=== PATIENT | female | born 1955 | race Caucasian/White ===

== ENCOUNTER → 2016-03-30 | Outpatient (CLI) | payer BC | END | disposition home or self-care (01) | LOC: LABWHC1 08:29 | PROVIDERS: ATTEND Anesthesiology | DX: Z01.818 Encounter for other preprocedural examination (principal) | CPT/HCPCS: 86850; 86900; 86901 ==

== ENCOUNTER 2016-04-05 05:54 | Day surgery (SDC) | payer BC ==
[2016-03-27 12:25] VITALS: BMI 35.2
[~2016-04-05 05:54] MED LIST: GENTAMICIN 120 MG in SODIUM CHLORIDE 0.9% 100 ML IVPB ONE; ceFAZolin 2 GM in SODIUM CHLORIDE 0.9% 100 ML IVPB ONE
[2016-04-05] MEDS ORDERED: ONDANSETRON 4 MG/2 ML VIAL IVP ONE (06:05)
[2016-04-05] MEDS ORDERED: DEXAMETHASONE SOD PHOSPHATE 10 MG/ML 1 ML VIAL IV ONE (06:05)
[2016-04-05] MEDS ORDERED: SCOPOLAMINE 1.5MG/72HR PATCH TRANSDERM ONE (06:05)
[2016-04-05] MEDS ORDERED: HYDROmorphone 1 MG/ML 1 ML SYRINGE IVP PRN (06:05)
[2016-04-05] MEDS ORDERED: MIDAZOLAM 2 MG/2 ML VIAL IV PRN (06:05)
[2016-04-05] MEDS ORDERED: LIDOCAINE 1% 20 ML VIAL (10MG/ML) FOR IV START INTRADERMA ONE (06:15)
[2016-04-05] MEDS: LACTATED RINGERS 1,000 ML IV SCH ×4 (06:15→20:40)
--- NOTE | 2016-04-05 07:05 | P.HPOB ---
History of Present Illness H&P Date: 04/05/16 Chief Complaint: prolapse and incontinence 60 year old presents for total laparoscopic hysterectomy bilateral salpingoopherectomy with anterior repair and sling by Dr Beck. Review of Systems All systems: negative Constitutional: Denies chills, Denies fever Eyes: denies blurred vision, denies pain Ears, nose, mouth and throat: Denies headache, Denies sore throat Cardiovascular: Denies chest pain, Denies shortness of breath Respiratory: Denies cough Gastrointestinal: Denies abdominal pain, Denies diarrhea, Denies nausea, Denies vomiting Genitourinary: Denies dysuria, Denies hematuria Musculoskeletal: Denies myalgias Integumentary: Denies pruritus, Denies rash Neurological: Denies numbness, Denies weakness Psychiatric: Denies anxiety, Denies depression Endocrine: Denies fatigue, Denies weight change Past Medical History Past Medical History: No Reported History History of Any Multi-Drug Resistant Organisms: None Reported Past Surgical History: Appendectomy, Bariatric Surgery, Cholecystectomy, Orthopedic Surgery Additional Past Surgical History / Comment(s): bilateral carpal tunnel, gastric bypass Past Anesthesia/Blood Transfusion Reactions: Family History of Problems w/ Anesthesia Additional Past Anesthesia/Blood Transfusion Reaction / Comment(s): mom-hives w/ anesthesia? Past Psychological History: No Psychological Hx Reported Smoking Status: Former smoker Past Alcohol Use History: Occasional Additional Past Alcohol Use History / Comment(s): quit smoking 15 yrs. ago, smoked on & off 10 yrs. Past Drug Use History: None Reported - Past Family History Mother Family Medical History: Cancer Medications and Allergies Home Medications Medication Instructions Recorded Confirmed Type Calcium Carbonate [Calcium] 600 mg PO DAILY 03/27/16 03/27/16 History Cyanocobalamin [Vitamin B-12] 500 mcg PO DAILY 03/27/16 03/27/16 History Multivit with Calcium,Iron,Min 1 each PO DAILY 03/27/16 03/27/16 History [Women's Multivitamin] Cephalexin [Keflex] 250 mg PO Q8HR 04/05/16 04/05/16 History Allergies Allergy/AdvReac Type Severity Reaction Status Date / Time Sulfa (Sulfonamide Allergy Rash/Hives Verified 04/05/16 06:08 Antibiotics) adhesive AdvReac Itching Verified 04/05/16 06:08 Exam Osteopathic Statement: *. No significant issues noted on an osteopathic structural exam other than those noted in the History and Physical/Consult. - Vital Signs Vital signs: Vital Signs Temp Pulse Resp BP Pulse Ox 04/05/16 06:13 98.3 F 77 16 140/90 96 Heart: RRR Lungs: CTAB Abdomen: soft, nontender Extremeties: neg tyrell's Assessment and Plan (1) Cystocele with uterine prolapse Status: Acute (2) Urinary incontinence Status: Acute Plan: 1. total laparoscopic hysterectomy with bilateral salpingoopherectomy with anterior repair and midurethral sling
[2016-04-05] MEDS ORDERED: MIDAZOLAM 2 MG/2 ML VIAL ONE (07:23)
[2016-04-05] MEDS ORDERED: fentaNYL (PF) 50 MCG/ML 2 ML AMP ONE (07:23)
[2016-04-05] MEDS ORDERED: NEOSTIGMINE 1 MG/ML 10 ML VIAL ONE (07:23)
[2016-04-05] MEDS ORDERED: PHENYLEPHRINE-0.9% NACL SYG 1 MG/10 ML SYRINGE ONE (07:23)
[2016-04-05] MEDS ORDERED: ePHEDrine 50 MG/ML 1 ML AMP ONE (07:23)
[2016-04-05] MEDS ORDERED: GLYCOPYRROLATE 0.2 MG/ML 2 ML VIAL ONE (07:23)
[2016-04-05] MEDS ORDERED: ROCURONIUM BROMIDE 10 MG/ML 10 ML VIAL IV ONE (07:23)
[2016-04-05] MEDS ORDERED: SUCCINYLCHOLINE CHLORIDE VIAL 200 MG/10 ML VIAL IV ONE (07:23)
[2016-04-05] MEDS ORDERED: PROPOFOL 10 MG/ML 20 ML VIAL IV ONE (07:23)
[2016-04-05] MEDS ORDERED: ONDANSETRON 4 MG/2 ML VIAL ONE (07:23)
[2016-04-05] MEDS ORDERED: LIDOCAINE 1% INJ 10MG/ML (20 ML MDV) ONE (07:23)
[2016-04-05] MEDS ORDERED: BUPIVACAINE (PF) 0.25% 30 ML VIAL SQ ONE ×2 (08:34→09:03)
[2016-04-05] MEDS ORDERED: VASOPRESSIN 20 UNIT/ML 1 ML VIAL SQ ONE (08:50)
[2016-04-05] MEDS ORDERED: GENTAMICIN 80 MG in SODIUM CHLORIDE 0.9% 500 ML IRRIGATION ONE (08:52)
[2016-04-05] MEDS ORDERED: BACITRACIN 500 UNIT/GM OINT 28.4 GM TUBE TOPICAL ONE (09:31)
--- NOTE | 2016-04-05 09:38 | P.OP ---
Date of Procedure: 04/05/16 Preoperative Diagnosis: 1. Cystocele 2. Stress urinary incontinence Postoperative Diagnosis: 1. Cystocele 2. Stress urinary incontinence Implants: Total laparoscopic hysterectomy with bilateral salpingo-oophorectomy using da Mallika as well as an anterior repair and mid urethral sling placed by Dr. Beck Anesthesia: CHANDA Surgeon: Brooke Hernandez Procurement Technician #1: Andrez Machado Estimated Blood Loss (ml): 400 IV fluids (ml): 900 Urine output (ml): 300 Pathology: other (Uterus cervix bilateral tubes and ovaries) Condition: stable Disposition: PACU Description of Procedure: Patient taken the operating room where general anesthesia was obtained without difficulty. She is prepped and draped in normal sterile fashion dorsal lithotomy position, legs placed in the Mark stirrups. Weighted speculum placed in the vagina and the anterior lip the cervix was grasped with single- tooth tenaculum. The uterus sounded to 8 cm and the cervix diameter was 3.5 cm. The appropriate manipulator tip and ring were placed on the Kala manipulator. The Kala manipulator was then placed in the uterus. Craig catheter was also placed. Attention was then turned to the abdomen and gloves were changed. A 5 mm supraumbilical incision was made the scalpel and a 5 mm optical trocar was placed under direct visualization. 10 cm to the right of this and 2 cm down a 5 mm incision was made and 8 mm da Mallika port was placed under direct visualization. Same measurements on the opposite side of the patient's abdomen, the 5 mm incision was made and 8 mm da Mallika port was placed under direct visualization. In the left upper quadrant a 10 mm incision was made and a 10 mm optical trocar was placed under direct visualization. The 5 mm optical trocar was then replaced with the 8 mm da Mallika camera port. The robot was docked on patient's right side. The camera was introduced and then the monopolar curved scissor and [place] bipolar placed under direct visualization. I broke scrub and went to the physician console. The left infundibulopelvic ligament was cauterized with the Maryland bipolar and cut with monopolar curved scissors. The left round ligament was cauterized with the [place] bipolar and cut with monopolar curved scissors. The posterior leaf of the broad ligament was taken down using the monopolar curved scissors. Anterior leaf of the broad ligament was then taken down using the monopolar curved scissors. The uterine artery was cauterized with the Maryland bipolar and cut with monopolar curved scissors. The bladder flap was then started using the monopolar curved scissors. Attention was then turned to the right side of the patient's anatomy and the right infundibular pelvic ligament was cauterized with the Maryland bipolar and cut with monopolar curved scissors. The right round ligament was cauterized with the Maryland bipolar and cut with monopolar curved scissors. Posterior leaf of the broad ligament was taken down using the monopolar curved scissors and the anterior leaf was taken down using the monopolar curved scissors. The uterine artery was cauterized the Maryland bipolar cut with monopolar curved scissors. The bladder flap was then finished on this side. Anterior colpotomy was made using the monopolar curved scissors. The rest of the uterus was from the vaginal cuff by following the ring around with the monopolar curved scissors through the uterosacral ligaments back to the anterior portion. Once the uterus and cervix were amputated they were pulled through the vaginal cuff. Hemostasis was assured. The instruments were changed for the Cardier forcep and the zana suture cut. The vaginal cuff was then closed using O stratafix barbed suture in a running fashion. Hemostasis was again assured and the pelvis was irrigated. All instruments were removed from the abdomen and the robot was undocked. I scrubbed back in to perform the anterior repair. The anterior vaginal mucosa was grasped with Allis clamps and then the mucosa was infiltrated with diluted vasopressin. A linear cut was made with a scalpel and then the vaginal mucosa was undermined with the Metzenbaums. The vaginal mucosa was peeled off the underlying fascia. One Chandrika plication stitch was placed. Dr. Baca then took over the procedure and placed a sling and performed a cystoscopy where we did see both ureteral jets. Please see his dictation for full details on this. The abdominal incisions were closed with 4-0 Vicryl in a subcuticular fashion. Patient tolerated the procedure well, sponge and instrument counts correct 2 and she was taken to recovery room in stable condition condition
--- NOTE | 2016-04-05 10:08 | P.OP ---
Date of Procedure: 04/05/16 Preoperative Diagnosis: Mixed Urinary Incontinence Postoperative Diagnosis: Same Procedure(s) Performed: Obtryx Subfascial Sling Anesthesia: CHANDA Surgeon: Sawyer Beck Estimated Blood Loss (ml): 100 Pathology: none sent Condition: stable Disposition: PACU Indications for Procedure: She is a 60-year-old woman with a long history of mixed urinary incontinence, which now requires the use of 1-2 pads daily. She failed biofeedback approximately 10 years ago. On examination, there is evidence of urethral hypermobility, as well as a cystocele. Bladder emptying is complete. She was given samples of Myrbetriq, which failed to help. Urodynamic testing is consistent with type II stress incontinence, and she will undergo a trans- obturator sling at the time of her robotic-assisted laparoscopic hysterectomy with BSO and cysotocele repair Operative Findings: Normal bladder. Description of Procedure: I entered the operating room after Dr. Hernandez completed the robotic-assisted laparoscopic hysterectomy and bilateral salpingo-oophorectomy. She had completed the cystocele repair. The patient was positioned in the dorsal lithotomy position, with her legs supported in Mark stirrups. A 16-Andorran Craig catheter was placed. Metzenbaum scissors were used to dissect laterally within the submucosal plane, to the inferior pubic ramus. The scalpel was used to make bilateral groin incisions at the level of the clitoris. Subcutaneous tissues were spread with a hemostat. Each of the helical needles were passed through the respective groin incision, and turned such that the needle tip wrapped around the pubis. The needle tips were guided digitally into the vaginal incision. The Obtryx graft, which had been previously soaked in antibiotic solution, was secured to the needle tips using the snap connectors. The needles were then withdrawn, and the position of the graft was adjusted such that it overlie the mid urethra, as desired. The ends of the graft were cut away. With a hemostat placed between the graft and the urethra to prevent tension of the graft over the urethra, the plastic sheath was removed from the ends of the graft. The ends of the graft were cut beneath the skin incisions, and these incisions were closed using 4-0 Vicryl suture in a subcuticular fashion. Hemostasis within the vaginal incision was adequate, and the vaginal incision was closed using 2-0 Vicryl suture in a running fashion. Cystoscopy was performed. The 30 lens was used to introduce the 19-Andorran Storz cystoscopic sheath through the urethra and into the bladder under direct vision. The urethra and bladder were unremarkable. There was no evidence of perforation. Both ureteral orifices were of normal anatomic location and configuration, and clear urine effluxed from both. No tumors or foreign bodies were seen. The cystoscope was removed, and the Craig catheter was replaced into the bladder. The return was clear. Vaginal packing was placed, as some oozing was present from the right side of the dissection. All sponge and needle counts were correct. Blood loss for the total procedure was 400 mL. The patient tolerated the procedure well was taken to the recovery room in stable condition.
[2016-04-05] MEDS ORDERED: SIMETHICONE 80 MG CHEWABLE PO PRN (11:10)
[2016-04-05] MEDS ORDERED: ONDANSETRON 4 MG/2 ML VIAL IVP PRN (11:10)
[2016-04-05] MEDS ORDERED: KETOROLAC 30 MG/ML 1 ML VIAL IVP PRN (11:10)
[2016-04-05] MEDS ORDERED: IBUPROFEN 600 MG TAB PO PRN (11:10)
[2016-04-05] MEDS ORDERED: diphenhydrAMINE 50 MG/ML 1 ML VIAL IVP PRN (11:10)
[2016-04-05] MEDS ORDERED: Acetaminophen-Codeine 300-30mg TAB PO PRN ×2 (11:10)
[2016-04-05] MEDS: ceFAZolin 2 GM in SODIUM CHLORIDE 0.9% 100 ML IVPB SCH (16:52)
[2016-04-05] MEDS ORDERED: GENTAMICIN 120 MG in SODIUM CHLORIDE 0.9% 100 ML IVPB ONE (20:00)
[2016-04-05] MEDS: SENNOSIDES-DOCUSATE SODIUM 1 EACH TAB PO SCH (20:39)
[2016-04-06] MEDS: ceFAZolin 2 GM in SODIUM CHLORIDE 0.9% 100 ML IVPB SCH ×2 (00:17→08:18)
[2016-04-06 08:31] LABS: Basophils % (A) 0 %; CH 26.7; CHCM 31.7; Eosinophils # (A) 0.1 k/uL (0-0.7); Eosinophils % (A) 1 %; HCT 31.9 % (34.0-46.0); HDW 2.75; HGB 9.8 gm/dL (11.4-16.0); Hypochromasia Slight; Luc # (Auto) 0.09; Luc % (Auto) 1; Lymphocytes # (A) 1.7 k/uL (1.0-4.8); Lymphocytes % (A) 25 %; MCH 25.9 pg (25.0-35.0); MCHC 30.5 g/dL (31.0-37.0); MCV 84.9 fL (80.0-100.0); Mean Platelet Volume 9.1; Monocytes # (A) 0.5 k/uL (0-1.0); Monocytes % (A) 8 %; Neutrophils # (A) 4.3 k/uL (1.3-7.7); Neutrophils % (A) 65 %; RBC 3.76 m/uL (3.80-5.40); RDW 15.3 % (11.5-15.5); WBC 6.7 k/uL (3.8-10.6); WBC (Perox) 6.65
--- NOTE | 2016-04-06 09:30 | P.PN ---
Subjective The patient is in her first postoperative day from placement of a trans- obturator tape by , and a robotic-assisted abdominal hysterectomy with anterior repair by Dr. Hernandez. She is doing well. The catheter has been removed. We will see how she voids. From urologic standpoint when she is emptying adequately she can be discharged home. I will allow Dr. Hernandez to make that final decision provided she urinates without difficulty. She would need to be seen in our office in one week for follow-up. Objective - Vital Signs Vital signs: Vital Signs Temp 98.3 F 04/06/16 00:15 Pulse 80 04/06/16 00:15 Resp 20 04/06/16 00:15 BP 113/64 04/06/16 00:15 Pulse Ox 94 L 04/06/16 00:15 Intake & Output 04/05/16 04/06/16 04/06/16 18:59 06:59 18:59 Intake Total 1702 1200 Output Total 1100 3200 Balance 602 -2000 Intake: IV 1502 Oral 200 1200 Output: Urine 700 3200 Estimated Blood Loss 400 - Labs CBC & Chem 7: 04/06/16 07:03 Labs: Abnormal Lab Results - Last 24 Hours (Table) 04/06/16 Range/Units 07:03 RBC 3.76 L (3.80-5.40) m/uL Hgb 9.8 L (11.4-16.0) gm/dL Hct 31.9 L (34.0-46.0) % MCHC 30.5 L (31.0-37.0) g/dL
[2016-04-06 09:41] VITALS: BP 108/57; PULSE 85; RESP 18; TEMP 99.7
[2016-04-06] MEDS: SENNOSIDES-DOCUSATE SODIUM 1 EACH TAB PO SCH (10:04)
--- NOTE | 2016-04-06 10:06 | P.DS ---
Providers Date of admission: 04/05/16 Expected date of discharge: 04/06/16 Attending physician: Brooke Hernandez Primary care physician: Stated None - Discharge Diagnosis(es) (1) Cystocele with uterine prolapse Current Visit: Yes Status: Resolved (2) Urinary incontinence Current Visit: Yes Status: Resolved Hospital Course: PAtient presented for [facility] BSO with anterior repair and sling. She underwent this procedure without complication. HEr pain is well controlled. Tolerating reg diet ambulating without difficulty. She will be discharged home POD #1 in stable condition to follow up with me in 3 weeks. Plan - Discharge Summary New Discharge Prescriptions: Acetaminophen-Codeine 300-30mg [Tylenol w/codeine #3] 2 each PO Q6HR PRN #30 tab PRN Reason: Severe Pain Ibuprofen [Motrin] 600 mg PO Q6HR PRN #30 tab PRN Reason: Mild Discomfort Discharge Medication List Calcium Carbonate [Calcium] 600 mg PO DAILY 03/27/16 [History] Cyanocobalamin [Vitamin B-12] 500 mcg PO DAILY 03/27/16 [History] Multivit with Calcium,Iron,Min [Women's Multivitamin] 1 each PO DAILY 03/27/16 [ History] Cephalexin [Keflex] 250 mg PO Q8HR 04/05/16 [History] Acetaminophen-Codeine 300-30mg [Tylenol w/codeine #3] 2 each PO Q6HR PRN #30 tab 04/06/16 [Rx] Ibuprofen [Motrin] 600 mg PO Q6HR PRN #30 tab 04/06/16 [Rx] Follow up Appointment(s)/Referral(s): Brooke Hernandez DO [Doctor of Osteopathic Medicine] - 3 Weeks
== END 2016-04-06 13:00 | disposition home or self-care (01) ==
LOC: OR 05:54 → 6PED 09:32 → OR 04-06 13:00
PROVIDERS: ATTEND Obstetrics & Gynecology
DX: N81.2 Incomplete uterovaginal prolapse (principal); N39.46 Mixed incontinence; Z79.899 Other long term (current) drug therapy; Z88.2 Allergy status to sulfonamides; Z88.8 Allergy status to other drugs, medicaments and biological substances; Z87.891 Personal history of nicotine dependence; Z79.2 Long term (current) use of antibiotics
CPT/HCPCS: 57288; 58571; S2900; 85025; 86850; 86900; 86901; 88305; 94760

== ENCOUNTER 2018-03-18 10:44 | Day surgery (SDC) | payer BC ==
[2018-03-12 09:37] VITALS: BMI 32.3
[~2018-03-18 10:44] MED LIST changes: +DEXAMETHASONE SOD PHOSPHATE 10 MG/ML 1 ML VIAL IV ONE; -GENTAMICIN 120 MG in SODIUM CHLORIDE 0.9% 100 ML IVPB ONE; +HYDROmorphone 0.5 MG/0.5 ML SYRINGE IVP PRN; +LACTATED RINGERS 1,000 ML IV SCH; +LIDOCAINE 1% 20 ML VIAL (10MG/ML) FOR IV START INTRADERMA PRN; +ONDANSETRON 4 MG/2 ML VIAL IVP ONE; +SCOPOLAMINE 1.5MG/72HR PATCH TRANSDERM ONE; -ceFAZolin 2 GM in SODIUM CHLORIDE 0.9% 100 ML IVPB ONE; +ceFAZolin IN SWFI 2 GM/20 ML SYRINGE IVP ONE
[2018-03-18] MEDS ORDERED: MIDAZOLAM 2 MG/2 ML VIAL IVP ONE (11:53)
[2018-03-18] MEDS ORDERED: NEOSTIGMINE 1 MG/ML 10 ML VIAL ONE (12:29)
[2018-03-18] MEDS ORDERED: LIDOCAINE 1% INJ 10MG/ML (20 ML MDV) ONE (12:29)
[2018-03-18] MEDS ORDERED: ePHEDrine SULFATE/0.9% NACL/PF 50 MG/5 ML SYRINGE IV ONE (12:29)
[2018-03-18] MEDS ORDERED: MIDAZOLAM 2 MG/2 ML VIAL ONE (12:29)
[2018-03-18] MEDS ORDERED: GLYCOPYRROLATE 0.2 MG/ML 2 ML VIAL ONE (12:29)
[2018-03-18] MEDS ORDERED: SUCCINYLCHOLINE CHLORIDE 100 MG/5 ML SYR IV ONE (12:29)
[2018-03-18] MEDS ORDERED: PROPOFOL 10 MG/ML 20 ML VIAL IV ONE (12:29)
[2018-03-18] MEDS ORDERED: ROCURONIUM BROMIDE 10 MG/ML 10 ML VIAL IV ONE (12:29)
[2018-03-18] MEDS ORDERED: PHENYLEPHRINE-0.9% NACL SYG 1 MG/10 ML SYRINGE ONE (12:29)
[2018-03-18] MEDS ORDERED: BUPIVACAINE (PF) 0.25% 30 ML VIAL SQ ONE ×2 (13:03)
[2018-03-18] MEDS ORDERED: ceFAZolin 1,000 MG in SODIUM CHLORIDE 0.9% 1,000 ML IRRIGATION ONE (13:04)
[2018-03-18] MEDS ORDERED: LACTATED RINGERS 1,000 ML IV ONE (13:26)
[2018-03-18 14:27] VITALS: TEMP 97.8
[2018-03-18 14:50] VITALS: RESP 16
--- NOTE | 2018-03-18 15:09 | OP ---
OPERATIVE REPORT DATE OF PROCEDURE: 03/18/2018 PREOPERATIVE DIAGNOSIS: Right closed displaced midshaft clavicle fracture. POSTOPERATIVE DIAGNOSIS: Right closed displaced midshaft clavicle fracture. PROCEDURE PERFORMED: Open reduction, internal fixation, right clavicle fracture. SURGEON: Javier Mg MD. EXAMINER RATING CLERK: Ortiz LARIOS. ANESTHESIA: General endotracheal. ESTIMATED BLOOD LOSS: 50 mL. TOURNIQUET: None. DRAINS: None. COMPLICATIONS: None apparent. DISPOSITION: Postanesthesia Care Unit. INDICATIONS: Pam is a very pleasant 62-year-old female who slipped in her bathroom and fell onto her right shoulder a little bit less than a week ago. She initially presented to my office after being seen in the emergency department. She did have a 100% displaced and highly shortened midshaft clavicle fracture. Due to the significant displacement of the fracture, recommendation was made for open reduction, internal fixation of her clavicle fracture. She would like to proceed. The risks of procedure were discussed with her in detail. These risks include, but are not limited to risk of infection, nerve damage, bleeding, pain, and failure of the fracture to heal. There is also the possibility for deep infection and loosening of the screws and plate. A further risk is a very small risk of deep vein thrombosis which could lead to fatal pulmonary embolism. All of her questions with regards to the risks were answered to her satisfaction. An appropriate informed consent was obtained. DESCRIPTION OF THE PROCEDURE: Patient identified in the preoperative holding area. Surgical site was marked by both the patient and myself. She was given 2 g of Ancef IV for prophylactic purposes. She was then transported to the operative suite. She was placed supine on the operative table. General anesthetic was then administered and dosed per the Anesthesia Department without apparent complication. She was then placed into the beach chair position, well-padded in preparation for surgery. Great care was taken to ensure that here cervical spine was in neutral alignment and maintained that way throughout the operative case. Also, great care was taken to ensure that her legs were appropriately padded as well. Patient's right upper extremity is then prepped and draped in usual sterile fashion. A standard surgical pause was undertaken to ensure that we were operating on the correct site and that appropriate preoperative antibiotics were given. All staff in the room were in agreement, we proceeded. The outlines of the fracture were marked with surgical pen. The AC joint, acromion, and coracoid also marked with surgical pen. A planned 10-12 cm incision centered over the fracture was then made in the anterior aspect of the clavicle. Incision was then made with a 10 blade scalpel. Dissection carried down sharply to the clavicle itself. Great care was taken to make sure the maximized thickness of the flaps for closure at the end of the case. The fracture is alert was readily identifiable. I did mostly blunt dissection around the fracture site as to avoid any iatrogenic nerve or blood vessel injury. The fracture was comminuted. There was a fairly large comminuted fragment measured approximately 2 cm. However, is was very thin. I then utilized a lobster claw-type reduction clamps to reduce the fracture. As noted, there was quite a bit of comminution. I did freshen up the fracture and this provided for nice fit for reduction. I then proceeded with placement of a plate. A 6 hole [employer] pre contoured clavicle plate was chosen. This fit very nicely. I then placed the 3.5 mm bicortical nonlocking screw through the proximal oblong hole of the plate. The fracture was then held reduced with reduction clamps and the 3.5 mm bicortical nonlocking screw was placed through the oblong hole in the distal aspect of the fracture. This was placed in a compression type function as well as to compress the fracture. Both of the screws had excellent purchase in bone. I then proceeded with placement of two bicortical 3.5 mm locking screws in the proximal fragment and then two 3.5 mm bicortical locking screws in the distal fragment. All the screws were placed with protection on the undersurface of the clavicle as to avoid any iatrogenic injury to the nerve or blood vessels. Fracture admitted to reduced very nicely at this point. It was compressed as much as possible. All the screws had good purchase. I proceeded with closure. The comminuted fragment did have some anterior soft tissue still attached to it. I then utilized a K-wire to make a small hole through the comminuted piece and then I was able to run a #1 Vicryl suture through comminuted piece around the plate to provide provisional fixation for the comminuted anterior piece of bone. I did not feel that the piece of bone was of sufficient thickness that it would allow for screw fixation. This provided good provisional fixation of the anterior comminuted fragment. I then proceeded with closure. The wound was thoroughly irrigated with sterile saline solution with antibiotic added. The deep deltotrapezial fascia was closed with interrupted #1 Vicryl sutures. This provided excellent robust provisional layered closure over the plate. Again the wound was thoroughly irrigated with sterile saline solution with antibiotic added. The subcutaneous tissue was then closed with 2-0 Vicryl suture. The skin was closed with a running 3-0 Quill suture. Dermabond was then applied to the incision. Sterile compressive dressing was then applied. All sponge and needle counts were deemed correct prior to closure. The patient tolerated the procedure without apparent complication. Her right upper extremity was placed in a standard sling. She was transferred to the recovery room in stable condition. MMODL / IJN: [id number] /
[2018-03-18 15:47] VITALS: BP 119/82; PULSE 86
--- NOTE | 2018-03-18 22:02 | P.ONQ ---
Anesthesiology Proc Note - PNB - Peripheral Nerve Block Performed Right Interscalene Single Time Out Performed: Yes (1200) Procedure Start Time: 12:00 Procedure Stop Time: 12:10 Indication: Acute Post-Operative Pain, Dx/Pain Location (Right Shoulder Pain), Requested by physician Sedation Type: Sedate with meaningful contact maintained Preparation: Sterile Prep Position: Supine Catheter: None Needle Types: On-Q Needle Size: 50mm (2") Needle Gauge: 21 Technique: Ultrasound Injectate: 0.5% Ropivacaine (see comment for volume) (20ml) Blood Aspirated: No Pain Paresthesia on Injection Noted: No Resistance on Injection: Normal Events: Uneventful and Well Tolerated
== END 2018-03-18 16:25 | disposition home or self-care (01) ==
LOC: OR 10:44
PROVIDERS: ATTEND Orthopaedic Surgery Sports Medicine
DX: S42.021A Displaced fracture of shaft of right clavicle, initial encounter for closed fracture (principal); W18.09XA Striking against other object with subsequent fall, initial encounter; Y92.002 Bathroom of unspecified non-institutional (private) residence as the place of occurrence of the external cause; N39.0 Urinary tract infection, site not specified; Z79.899 Other long term (current) drug therapy; Z87.440 Personal history of urinary (tract) infections; Z87.891 Personal history of nicotine dependence; Z88.2 Allergy status to sulfonamides; Z91.048 Other nonmedicinal substance allergy status; Z98.84 Bariatric surgery status; Z90.710 Acquired absence of both cervix and uterus
CPT/HCPCS: 64415; 23515; C1713; J2250; J1100; J2710; J2405; J0690 ×2; J2001; J2370; J0330; J2704

== ENCOUNTER → 2023-07-22 | Outpatient (CLI) | payer MEDICARE ==
[2023-07-22 14:32] LABS: African American GFR (CKD) 82 (>60 ml/min/1.73 sqM); Blood Urea Nitrogen 20 mg/dL (7-17); Non-African American GFR(CKD) 71 (>60 ml/min/1.73 sqM)
--- NOTE | 2023-07-22 15:22 | CT ---
EXAMINATION TYPE: CT abdomen pelvis w con CT DLP: 1803 mGycm, Automated exposure control for dose reduction was used. DATE OF EXAM: 07/22/2023 3:11 PM COMPARISON: CT abdomen pelvis most recent from 04/01/2013 CLINICAL INDICATION:Female, 67 years old with history of K43.6 OTHER AND UNSP VENTRAL HERNIA WITH OBS TRUCTI; Hernia. TECHNIQUE: Axial CT abdomen pelvis w con;Sagittal and coronal reformats were created on a separate w orkstation. Contrast used:100ml mL of Isovue 300 with IV Contrast, (none if empty) Oral contrast used: with Oral Contrast (none if empty) FINDINGS: LOWER CHEST: Unremarkable ABDOMEN LIVER: Unremarkable GALLBLADDER AND BILE DUCTS: The gallbladder surgically absent. PANCREAS: Unremarkable. SPLEEN: Unremarkable. ADRENAL GLANDS: Unremarkable. KIDNEYS AND URETERS: No evidence of hydronephrosis or renal calculus. The ureters are unremarkable. PELVIS BLADDER: Unremarkable REPRODUCTIVE: Unremarkable. ABDOMEN & PELVIS STOMACH AND BOWEL: No evidence of bowel obstruction. Postsurgical changes of gastric lumen. And upper small bowel. PERITONEUM/RETROPERITONEUM: No evidence of pneumoperitoneum or free fluid. VASCULATURE: No evidence of aortic aneurysm. MUSCULOSKELETAL: No acute osseous abnormalities, scoliosis changes with levoscoliosis apex L2-L4. LYMPH NODES: No gross evidence for lymphadenopathy. SOFT TISSUE/ABDOMINAL WALL: Ventral wall hernia containing loops of colon. No evidence for obstructio n. Hernia measuring 4.1 cm at the neck. IMPRESSION: Anterior abdominal hernia containing transverse colon no evidence for obstruction or circulation.
== END | disposition home or self-care (01) ==
LOC: RADCTMAIN 13:17
PROVIDERS: ATTEND Surgery Plastic and Reconstructive Surgery
DX: Z01.89 Encounter for other specified special examinations (principal); K43.6 Other and unspecified ventral hernia with obstruction, without gangrene; K46.9 Unspecified abdominal hernia without obstruction or gangrene
CPT/HCPCS: 82565; 84520; 74177; 36415; Q9967

== ENCOUNTER → 2023-07-22 | Outpatient (CLI) | payer MEDICARE | END | disposition home or self-care (01) | LOC: LABWHC1 11:50 | PROVIDERS: ATTEND Surgery Plastic and Reconstructive Surgery | DX: Z01.89 Encounter for other specified special examinations (principal); K43.6 Other and unspecified ventral hernia with obstruction, without gangrene | CPT/HCPCS: 36415; 93005 ==

== ENCOUNTER 2023-07-30 09:25 | Day surgery (SDC) | payer MEDICARE ==
[2023-07-23 17:23] VITALS: BMI 32.3
[2023-07-30 10:53] VITALS: TEMP 97.8
[2023-07-30] MEDS: LACTATED RINGERS 1,000 ML IV SCH (10:57)
[2023-07-30] MEDS ORDERED: PROPOFOL 10 MG/ML 20 ML VIAL IV ONE (11:16)
--- NOTE | 2023-07-30 11:30 | P.PCN ---
Date of Procedure: 07/30/23 Description of Procedure: PREOPERATIVE DIAGNOSES: 1. Dysphagia 2. History of gastric bypass. POSTOPERATIVE DIAGNOSES: 1. Dysphagia 2. History of gastric bypass. PROCEDURE PERFORMED: Esophagogastrojejunoscopy. SURGEON: Smiley Maya MD ANESTHESIA: MAC. INDICATIONS: The patient is a 67-year-old female with prior history of Juni-en-Y gastric bypass reports dysphagia. Upper endoscopy was offered for further evaluation and management. DESCRIPTION: Patient was brought to the endoscopy suite and laid in the left lateral decubitus position. After adequate IV sedation, a bite block was placed. An Olympus gastroscope was passed along the posterior oropharynx down to the distal esophagus where the squamocolumnar junction was found at approximately 38 cm from the incisors. The anastomosis was found at 42 cm, consistent with approximately 4 cm gastric pouch. The scope was advanced 60 cm from the incisors. No evidence of foreign body was found. No evidence of active gastrojejunal ulcerations were encountered. The GI tract was desufflated. The patient tolerated the procedure well. FINDINGS: 1. No acute gastrojejunal ulceration. 2. No foreign body found along the anastomosis. 3. Gastric pouch 4 cm 4. Sliding diaphragmatic hiatal hernia PLAN: 1. Recommend upper endoscopy as needed. 2. May benefit from additional studies such as upper GI barium study. Plan - Discharge Summary Discharge Rx Participant: No New Discharge Prescriptions: Continue Vitamin K2 [Vitamin K-2] 100 mcg PO DAILY Turmeric Root Extract [Turmeric Curcumin] 500 mg PO DAILY Multivit-Min/Iron/Folic/Lutein [Centrum Silver Women Tablet] 1 each PO DAILY Zma-Supplement 2 tab PO DAILY Trospium Chloride [Sanctura XR] 60 mg PO DAILY Methenamine Hippurate [Hiprex] 1 gm PO BID Cyanocobalamin (Vitamin B-12) [Vitamin B-12] 1,000 mcg PO DAILY Calcium Carbonate/Vitamin D3 [Calcium 600 mg-D3 10 Mcg (400 Iu)] 2 each PO DAILY Discharge Medication List Calcium Carbonate/Vitamin D3 [Calcium 600 mg-D3 10 Mcg (400 Iu)] 2 each PO DAILY 07/23/23 [History] Cyanocobalamin (Vitamin B-12) [Vitamin B-12] 1,000 mcg PO DAILY 07/23/23 [History] Methenamine Hippurate [Hiprex] 1 gm PO BID 07/23/23 [History] Multivit-Min/Iron/Folic/Lutein [Centrum Silver Women Tablet] 1 each PO DAILY 07/23/23 [History] Trospium Chloride [Sanctura XR] 60 mg PO DAILY 07/23/23 [History] Turmeric Root Extract [Turmeric Curcumin] 500 mg PO DAILY 07/23/23 [History] Vitamin K2 [Vitamin K-2] 100 mcg PO DAILY 07/23/23 [History] Zma-Supplement 2 tab PO DAILY 07/23/23 [History] [facility]Ref[facility] [place] [facility] Patient Instructions/Handouts: Upper Endoscopy (DC) Discharge Disposition: HOME SELF-CARE
--- NOTE | 2023-07-30 11:31 | P.GSHP ---
History of Present Illness H&P Date: 07/30/23 CHIEF COMPLAINT: GERD and dysphagia HISTORY OF PRESENT ILLNESS: The patient is a 67-year-old female who presents reports gastroesophageal reflux disease and dysphagia. Upper endoscopy was offered for further evaluation and management. PAST MEDICAL HISTORY: Please see list. PAST SURGICAL HISTORY: Please see list. MEDICATIONS: Please see list. ALLERGIES: Please see list. SOCIAL HISTORY: No illicit drug use FAMILY HISTORY: No reports of Crohn disease or ulcerative colitis. REVIEW OF ORGAN SYSTEMS: CONSTITUTIONAL: No reports of fevers or chills. GI: Denies any blood in stools or constipation. PHYSICAL EXAM: VITAL SIGNS: Stable GENERAL: Well-developed and pleasant in no acute distress. HEENT: No scleral icterus. Extraocular movements grossly intact. Moist buccal mucosa. NECK: Supple without lymphadenopathy. CHEST: Unlabored respirations. Equal bilateral excursions. CARDIOVASCULAR: Regular rate and rhythm. Distal 2+ pulses. ABDOMEN: Soft, nondistended. MUSCULOSKELETAL: No clubbing, cyanosis, or edema. ASSESSMENT: 1. Gastroesophageal reflux disease and dysphagia PLAN: 1. Recommend proceeding with an upper endoscopy Past Medical History Past Medical History: No Reported History Additional Past Medical History / Comment(s): RECURRENT UTI-. FELL 03/06/18 IN BATHROOM -BROKE COLLAR BONE. HAS HERNIA History of Any Multi-Drug Resistant Organisms: None Reported Past Surgical History: Appendectomy, Bariatric Surgery, Cholecystectomy, Hysterectomy, Orthopedic Surgery Additional Past Surgical History / Comment(s): bilaT carpal tunnel, gastric bypass-2000,, EGD ORIF RT [place], Past Anesthesia/Blood Transfusion Reactions: Family History of Problems w/ Anesthesia Additional Past Anesthesia/Blood Transfusion Reaction / Comment(s): mom-hives w/anesthesia? SISTER HAD SLIGHT RASH WITH ANESTHESIA Smoking Status: Former smoker - Past Family History Mother Family Medical History: Cancer Medications and Allergies Home Medications Medication Instructions Recorded Confirmed Type Calcium Carbonate/Vitamin D3 2 each PO DAILY 07/23/23 07/30/23 History [Calcium 600 mg-D3 10 Mcg (400 Iu)] Cyanocobalamin (Vitamin B-12) 1,000 mcg PO DAILY 07/23/23 07/30/23 History [Vitamin B-12] Methenamine Hippurate [Hiprex] 1 gm PO BID 07/23/23 07/30/23 History Multivit-Min/Iron/Folic/Lutein 1 each PO DAILY 07/23/23 07/30/23 History [Centrum Silver Women Tablet] Trospium Chloride [Sanctura XR] 60 mg PO DAILY 07/23/23 07/30/23 History Turmeric Root Extract [Turmeric 500 mg PO DAILY 07/23/23 07/30/23 History Curcumin] Vitamin K2 [Vitamin K-2] 100 mcg PO DAILY 07/23/23 07/30/23 History Zma-Supplement 2 tab PO DAILY 07/23/23 07/30/23 History Allergies Allergy/AdvReac Type Severity Reaction Status Date / Time Sulfa (Sulfonamide Allergy Rash/Hives Verified 07/30/23 10:31 Antibiotics) adhesive AdvReac Itching Verified 07/30/23 10:31 Surgical - Exam Vital Signs Temp Pulse Resp BP Pulse Ox 97.8 F 82 16 139/82 99 07/30/23 10:38 07/30/23 10:38 07/30/23 10:38 07/30/23 10:38 07/30/23 10:38
[2023-07-30 12:44] VITALS: BP 111/74; PULSE 81; RESP 12
== END 2023-07-30 12:55 | disposition home or self-care (01) ==
LOC: ORWHC2ENDO 09:25
PROVIDERS: ATTEND Surgery Plastic and Reconstructive Surgery
DX: K21.9 Gastro-esophageal reflux disease without esophagitis (principal); K44.9 Diaphragmatic hernia without obstruction or gangrene; Z98.84 Bariatric surgery status; Z87.440 Personal history of urinary (tract) infections; Z90.49 Acquired absence of other specified parts of digestive tract; Z90.89 Acquired absence of other organs; Z90.710 Acquired absence of both cervix and uterus; Z87.891 Personal history of nicotine dependence; Z88.2 Allergy status to sulfonamides; Z79.899 Other long term (current) drug therapy
CPT/HCPCS: 43235; J2704

== ENCOUNTER → 2023-08-20 | Outpatient (CLI) | payer MEDICARE ==
[2023-08-20 14:44] VITALS: BP 123/80; PULSE 97; RESP 16; TEMP 98.2; BMI 32.4
--- NOTE | 2023-08-20 15:37 | P.HPBAR ---
Bariatric H&P - History & Physicial H&P Date: 08/20/23 History & Physicial: Visit/CC: follow up care Patient initial contact: Initial weight: 163.293 kg Initial weight in pounds: 360.00 Height: 5 ft 10 in Initial BMI: 51.6 Last weight: Current weight: 102.512 kg Current weight in pounds: 226.00 Current BMI: 32.4 [place] body weight (based on NIH guidelines): 68.039 kg Excess body weight loss: 63.8% The patient is a 67 year-old F who presents for Bariatric Assessment. DATE: 08/20/23 CHIEF COMPLAINT: Status post gastric bypass HISTORY OF PRESENT ILLNESS: Pam Luna is a 67-year-old female status post gastric bypass. Her highest weight is 360 pounds. Her lowest weight is present, 225 pounds. She has lost over 100 pounds. Her gastric bypass was done in 2000. She is 23 years postop. She has lower back pain and sees chiropractor. She has redness with itching of her pannus for over 3 years. She has large pannus with difficulty of grooming and dressing herself. She presents with concerns of skin infection for panniculectomy including new risk of hernias. At height of 5 feet 10 inches, her ideal body weight is 173 pounds. Her highest weight is 360 pounds, body mass index 51.8. Her lowest weight is 225 pounds. She comes in 226 pounds. Her body mass index is 32.4. Lifetime weight loss is 134 pounds. Lifetime percent excess weight loss of 72%. She is 53 pounds overweight. PAST MEDICAL HISTORY: 1. Morbid obesity due to excess calories 2. Body mass index of 51.8 3. Osteoarthritis bilateral knee 4. Overactive bladder 5. Chronic urinary tract infection 6. Osteoarthritis lower back 7. Panniculitis. PAST SURGICAL HISTORY: 1. Status post gastric bypass, 2000 2. Bilateral carpal tunnel release 3. Upper endoscopy 4. Cholecystectomy 5. Appendectomy HOME MEDICATIONS: Home Medications Medication Instructions Recorded Confirmed Calcium Carbonate/Vitamin D3 2 each PO DAILY 07/23/23 08/21/23 [Calcium 600 mg-D3 10 Mcg (400 Iu)] Cyanocobalamin (Vitamin B-12) 1,000 mcg PO DAILY 07/23/23 08/21/23 [Vitamin B-12] Methenamine Hippurate [Hiprex] 1 gm PO BID 07/23/23 08/21/23 Multivit-Min/Iron/Folic/Lutein 1 each PO DAILY 07/23/23 08/21/23 [Centrum Silver Women Tablet] Trospium Chloride [Sanctura XR] 60 mg PO DAILY 07/23/23 08/21/23 Turmeric Root Extract [Turmeric 500 mg PO DAILY 07/23/23 08/21/23 Curcumin] Vitamin K2 [Vitamin K-2] 100 mcg PO DAILY 07/23/23 08/21/23 Zma-Supplement 2 tab PO DAILY 07/23/23 08/21/23 ALLERGIES: Allergies Allergy/AdvReac Type Severity Reaction Status Date / Time Sulfa (Sulfonamide Allergy Rash/Hives Verified 07/30/23 10:31 Antibiotics) adhesive AdvReac Itching Verified 07/30/23 10:31 SOCIAL HISTORY: Past tobacco use. FAMILY HISTORY: No family history of ulcerative colitis disease or Crohn's disease. Family history of morbid obesity. No lupus in the family. No reports of stomach or esophageal cancer. REVIEW OF ORGAN SYSTEMS: CONSTITUTIONAL: At height of 5 feet 10 inches, her ideal body weight is 173 pounds. Her highest weight is 360 pounds, body mass index 51.8. HEENT: Denies any active troubles with vision or hearing. ENDOCRINE: Denies diabetes. Denies hypothyroidism. CARDIOVASCULAR: Denies past reports of palpitations or heart attacks or chest pain. RESPIRATORY: Denies daytime somnolence. GASTROINTESTINAL: Denies any bright red blood per rectum. Denies gastroesophageal reflux disease. MUSCULOSKELETAL: Has lower back pain and joint pain. Has osteoarthritis of the knees. NEURO: No headaches. No seizure disorders. PSYCH: Denies depression. No suicidal ideation. RHEUMATOLOGIC: No lupus. No rheumatoid arthritis. HEMATOLOGIC: Denies any abnormal bleeding or bruising. No personal history of DVTs. SKIN: Has panniculitis. No skin cancer. PHYSICAL EXAM: VITAL SIGNS: Height 5 foot 10 inches, weight 226 pounds. BMI 32.4 Vital Signs Temp 98.2 F 08/20/23 14:41 Pulse 97 08/20/23 14:41 Resp 16 08/20/23 14:41 BP 123/80 08/20/23 14:41 Pulse Ox FiO2 GENERAL: Well-developed in no acute distress. HEENT: No scleral icterus. Extraocular movements grossly intact. Hears conversational speech. No nasal drainage. NECK: Supple without lymphadenopathy. CHEST: Nonlabored respirations with equal bilateral excursions. CARDIOVASCULAR: Regular rate and regular rhythm. Distal 2+ pulses. ABDOMEN: Obese, soft, nontender, nondistended. She has pannus grade 3. MUSCULOSKELETAL: No clubbing, cyanosis. NEURO: No focal or lateralizing signs. Cranial nerves 2 through 12 grossly within normal limits. PSYCH: Appropriate affect. Alert and oriented to person, place and time. SKIN: Good skin turgor. Well perfused. EGD FINDINGS: 1. No acute gastrojejunal ulceration. 2. No foreign body found along the anastomosis. 3. Gastric pouch 4 cm 4. Sliding diaphragmatic hiatal hernia STUDIES: CT of the abdomen pelvis independently reviewed demonstrates large incarcerated incisional ventral hernia incorporating bowel. Additionally presence of diaphragmatic hiatal hernia. This is my independent interpretation. RADIOLOGY: CT of the abdomen pelvis report reviewed. EKG: From July 2023 demonstrates normal sinus rhythm. ASSESSMENT: 1. Morbid obesity due to excess calories 2. Body mass index of 51.8 3. Osteoarthritis bilateral knee 4. Overactive bladder 5. Chronic urinary tract infection 6. Osteoarthritis lower back 7. Panniculitis. 8. Incarcerated ventral hernia with small bowel 9. Hiatal hernia PLAN: 1. She has panniculitis on exam and recommend a statin powder for treatment. Additionally recommend referral to shift production associate for treatment of panniculitis. 2. She has incarcerated henia with bowel and hiatal hernia. She has large pannus. Options of abdominal wall reconstruction described. 3. Recommend complete bariatric metabolic panel with correction of micro and macronutrient deficiencies. 4. Correction of nutrition and objectives including 100 grams of protein/daily. 5. Recommend total fluids 128 oz daily. 6. Limiting carbohydrate intake of daily 50g to 100 g. 7. Recommend total calories daily 1000 kcal. 8. Plan for food journal. 9. Follow-up advised for October 14. 10. Goal weight loss of 10 pounds or more until next follow-up Past Medical History Past Medical History: No Reported History Additional Past Medical History / Comment(s): RECURRENT UTI-ON MACROBID REGIME. FELL 03/06/18 IN BATHRROM -BROKE COLLAR BONE History of Any Multi-Drug Resistant Organisms: None Reported Past Surgical History: Appendectomy, Bariatric Surgery, Cholecystectomy, Orthopedic Surgery Additional Past Surgical History / Comment(s): bilateral carpal tunnel, gastric bypass. , EGD Past Anesthesia/Blood Transfusion Reactions: Family History of Problems w/ Anesthesia Additional Past Anesthesia/Blood Transfusion Reaction / Comm: mom-hivsrikanth w/anesthesia? SISTER HAD SLIGHT RASH WITH ANESTHESIA Past Psychological History: No Psychological Hx Reported Smoking Status: Unknown if ever smoked Past Alcohol Use History: Occasional Additional Past Alcohol Use History / Comment(s): quit smoking 15 yrs. ago, smo ked on & off 10 yrs. Past Drug Use History: None Reported - Past Family History Mother Family Medical History: Cancer Surgical - Exam Vital Signs Temp Pulse Resp BP 98.2 F 97 16 123/80 08/20/23 14:41 08/20/23 14:41 08/20/23 14:41 08/20/23 14:41 Results - Labs 08/20/23 15:51 08/20/23 15:51 Bariatric Checklist Checklist: Plan: Checklist: EGD: 1. Hiatal hernia: 2. H. Pylori: HgbA1c: Vitamin D: Smoking: Former smoker Primary care physician referral: Psychiatry clearance: Cardiology clearance: Sleep study: Diet journal: VTE risk score: VTE risk level: Rehab needs at discharge:
[2023-08-20 16:34] LABS: INR 0.9 (<1.2); Partial Thromboplastin Time 24.5 sec (22.0-30.0); Prothrombin Time 10.2 sec (10.0-12.5)
[2023-08-20 18:27] LABS: HCT 35.9 % (37.2-46.3); MCH 26.4 pg (27.0-32.0); MCHC 30.6 g/dL (32.0-37.0); MCV 86.3 FL (80.0-97.0); Mean Platelet Volume 10.8 FL (9.5-12.2); NRBC Per 100 WBC 0 X 10*3/uL (0.00-0.01); Platelet Count 264 X 10*3/uL (140-440); RBC 4.16 X 10*6/uL (4.10-5.20); RDW 15.7 % (11.5-14.5); WBC 6.66 X 10*3/uL (4.50-10.00)
[2023-08-20 19:44] LABS: Prealbumin 17.8 mg/dL (18.0-42.0)
[2023-08-20 20:06] LABS: % Iron Saturation 11.63 (12.00-45.00); ALT 31 U/L (8-44); AST 32 U/L (13-35); Albumin 4.3 g/dL (3.8-4.9); Albumin/Globulin Ratio 1.19 Ratio (1.60-3.17); Alkaline Phosphatase 126 U/L (41-126); Calcium 9.2 mg/dL (8.7-10.3); Carbon Dioxide 23.6 mmol/L (21.6-31.8); Chloride 110 mmol/L (96-109); Chol/HDL Ratio 3.13 Ratio; Ferritin 14.1 ng/mL (10.0-291.0); Globulin 3.6 g/dL (1.6-3.3); Glucose 79 mg/dL (70-110); Iron 50 UG/DL (50-170); Magnesium 2.2 mg/dL (1.5-2.4); Phosphorus 4.2 mg/dL (2.4-5.1); Potassium 4.3 mmol/L (3.5-5.5); Sodium 148 mmol/L (135-145); Total Bilirubin 0.3 mg/dL (0.3-1.2); Total Iron Binding Capacity 430 UG/DL (228-460); Total Protein 7.9 g/dL (6.2-8.2)
[2023-08-21 14:34] LABS: Zinc, Serum 66 ug/dL (60-130)
[2023-08-22 05:33] LABS: Vitamin A 49 ug/dL (38-106)
[2023-08-22 15:33] LABS: Vit B1(Thiamine) 45 ug/L (38-122)
[2023-08-23 10:08] LABS: Anabasine Urine <2.0 ng/mL (<2.0)
[2023-08-24 07:32] LABS: Selenium 127 mcg/L (63-160)
== END ==
LOC: BARWHC3 13:51
PROVIDERS: ATTEND Surgery Plastic and Reconstructive Surgery
DX: Z09 Encounter for follow-up examination after completed treatment for conditions other than malignant neoplasm (principal); E66.01 Morbid (severe) obesity due to excess calories; D50.8 Other iron deficiency anemias; K90.89 Other intestinal malabsorption; E89.1 Postprocedural hypoinsulinemia; E55.9 Vitamin D deficiency, unspecified; K74.1 Hepatic sclerosis; N19 Unspecified kidney failure; T56.894A Toxic effect of other metals, undetermined, initial encounter; K50.90 Crohn's disease, unspecified, without complications; M17.0 Bilateral primary osteoarthritis of knee; N32.81 Overactive bladder; N39.0 Urinary tract infection, site not specified; M79.3 Panniculitis, unspecified; K44.0 Diaphragmatic hernia with obstruction, without gangrene; K43.6 Other and unspecified ventral hernia with obstruction, without gangrene; Z68.43 Body mass index [BMI] 50.0-59.9, adult; Z88.2 Allergy status to sulfonamides; Z91.048 Other nonmedicinal substance allergy status; Z87.891 Personal history of nicotine dependence; Z98.84 Bariatric surgery status; Z90.3 Acquired absence of stomach [part of]
CPT/HCPCS: 84255; 84134; 84425; 80061; 80053; 82607; 82728; 82525; 82746; 83540; 83550; 83735; 84100; 84443; 84590; 84630; 85027; 85610; 85730; 82306; 83970; 83036; 80307; G0480; G0463; 80323; 99211

== ENCOUNTER → 2023-12-10 | Outpatient (CLI) | payer MEDICARE ==
[2023-12-10 15:42] VITALS: BP 120/79; PULSE 102; RESP 16; TEMP 98.2; BMI 31.8
--- NOTE | 2023-12-10 16:09 | P.BASOAP ---
Subjective Progress Note Date: 12/10/23 She changer her mind and only want hernia repair but has risk of scar tissue. Mesh repair described. She accepts the risk. 100 grams of protein. Objective - Vital Signs Vital signs: Vital Signs Temp 98.2 F 12/10/23 15:33 Pulse 102 H 12/10/23 15:33 Resp 16 12/10/23 15:33 BP 120/79 12/10/23 15:33 Pulse Ox FiO2 Intake & Output 12/09/23 12/10/23 12/10/23 18:59 06:59 18:59 Weight 100.698 kg Assessment/Plan Plan: Date: 12/10/23 Initial Weight: 163.293 kg Initial BMI: 51.6 Current Weight: 100.698 kg Current BMI: 31.8 Type of Surgery: Total Volume in Band: Previous Volume: Volume Removed: Volume Added: Band Size:
== END ==
LOC: BARWHC3 14:43
PROVIDERS: ATTEND Surgery Plastic and Reconstructive Surgery
DX: E66.01 Morbid (severe) obesity due to excess calories (principal); Z88.2 Allergy status to sulfonamides; Z91.048 Other nonmedicinal substance allergy status; Z87.891 Personal history of nicotine dependence; Z68.31 Body mass index [BMI] 31.0-31.9, adult
CPT/HCPCS: 99211

== ENCOUNTER 2024-01-26 11:40 | Day surgery (SDC) | payer MEDICARE ==
--- NOTE | 2024-01-26 08:13 | P.GSHP ---
History of Present Illness H&P Date: 01/26/24 CHIEF COMPLAINT: Recurrent incisional hernia HISTORY OF PRESENT ILLNESS: Pam Luna is a 68-year-old female with prior gastric bypass, open technique. Patient has overlap and panniculitis. Patient reports change in bowel habits with swelling of the upper abdomen. Patient presents with incarcerated incisional hernia. Symptoms ongoing for over 2+ years however worsening. She elected for ventral hernia repair. PAST MEDICAL HISTORY: Reviewed PAST SURGICAL HISTORY: Reviewed MEDICATIONS: Reviewed ALLERGIES: Reviewed SOCIAL HISTORY: No current tobacco abuse FAMILY HISTORY: Denies any ulcerative colitis or Crohn's disease. REVIEW OF SYSTEMS: CONSTITUTIONAL: No fevers or chills GASTROINTESTINAL: Gastroesophageal reflux disease improved. No dumping syndrome. RESPIRATORY: Resolved obstructive sleep apnea. No pneumonia. MUSCULOSKELETAL: She has intermittent joint pain, including lower back pain from pannus. HEENT: Denies any troubles with vision or hearing. ENDOCRINE: Prediabetic state resolved. No reports of thyroid disorders. CARDIOVASCULAR: Denies any of recent palpitation or heart attack. Hypertension resolved. PSYCH: History of depression resolved. No anxiety. HEMATOLOGIC: Denies any personal history of venothrombotic event. SKIN: Has panniculitis. No recent skin cancer. PHYSICAL EXAM: VITAL SIGNS: 5 feet 10 inches, 99 kg. Body mass index 31.6 ABDOMEN: Soft, over 6 cm swelling of the upper abdomen above incision consistent with incisional hernia. GENERAL: Well-developed, pleasant female in no acute distress. HEENT: No scleral icterus. Extraocular movements grossly intact. Moist buccal mucosa. NECK: Supple. No lymphadenopathy. No JV distention. CHEST: Unlabored respirations, equal bilateral excursions. CARDIOVASCULAR: Regular rate and rhythm. MUSCULOSKELETAL: No clubbing, cyanosis, or edema. NEURO: Moves all extremities. Cranial nerves 2 through 12 grossly intact. PSYCH: Appropriate affect. Alert and oriented to person, place and time. SKIN: Well perfused. Good skin turgor. Pannus over 10 pounds with skin inflammation with panniculitis. ASSESSMENT: 1. Incarcerated incisional hernia 2. Status post gastric bypass 3. Obesity due to excess calories, BMI 31.6. 3. Panniculitis PLAN: 1. Options of panniculectomy with ventral hernia. Described. Patient had only elected for ventral hernia repair. Patient is elevated risk for complications with malnutrition from prior gastric bypass. Mesh placement was also described. Robotic assisted technique reviewed. 2. Recommend 2 week protein diet for optimal recovery 3. DVT prophylaxis. 4. Extended recovery more than 6-8 weeks described including placement of drains more than 2 weeks reviewed. Past Medical History Past Medical History: No Reported History Additional Past Medical History / Comment(s): RECURRENT UTI-on keflex for UTI started 12/09/23 History of Any Multi-Drug Resistant Organisms: None Reported Past Surgical History: Appendectomy, Bariatric Surgery, Cholecystectomy, Hysterectomy, Orthopedic Surgery Additional Past Surgical History / Comment(s): bilateral carpal tunnel, gastric bypass 2000 rt shoulder pins and hardware removal ,. , EGD Past Anesthesia/Blood Transfusion Reactions: Family History of Problems w/ Anesthesia Additional Past Anesthesia/Blood Transfusion Reaction / Comment(s): mom-hives w/anesthesia? SISTER HAD SLIGHT RASH WITH ANESTHESIA Smoking Status: Former smoker - Past Family History Mother Family Medical History: Cancer Medications and Allergies Home Medications Medication Instructions Recorded Confirmed Type Calcium Carbonate/Vitamin D3 2 each PO DAILY 07/23/23 01/21/24 History [Calcium 600 mg-D3 10 Mcg (400 Iu)] Cyanocobalamin (Vitamin B-12) 1,000 mcg PO DAILY 07/23/23 01/21/24 History [Vitamin B-12] Multivit-Min/Iron/Folic/Lutein 2 each PO DAILY 07/23/23 01/21/24 History [Centrum Silver Women Tablet] Turmeric Root Extract [Turmeric 500 mg PO DAILY 07/23/23 01/21/24 History Curcumin] Vitamin K2 [Vitamin K-2] 100 mcg PO DAILY 07/23/23 01/21/24 History Zma-Supplement 2 tab PO DAILY 07/23/23 01/21/24 History Non Formulary Drug 1 tab PO BID 12/10/23 01/21/24 History Solifenacin Succinate [Vesicare] 5 mg PO DAILY 12/10/23 01/21/24 History Allergies Allergy/AdvReac Type Severity Reaction Status Date / Time Sulfa (Sulfonamide Allergy Rash/Hives Verified 01/21/24 11:16 Antibiotics) adhesive AdvReac Itching Verified 01/21/24 11:16
[~2024-01-26 11:40] MED LIST changes: -DEXAMETHASONE SOD PHOSPHATE 10 MG/ML 1 ML VIAL IV ONE; -LIDOCAINE 1% 20 ML VIAL (10MG/ML) FOR IV START INTRADERMA PRN; -ONDANSETRON 4 MG/2 ML VIAL IVP ONE; +ONDANSETRON 4 MG/2 ML VIAL IVP PRN; -SCOPOLAMINE 1.5MG/72HR PATCH TRANSDERM ONE; -ceFAZolin IN SWFI 2 GM/20 ML SYRINGE IVP ONE
[2024-01-26] MEDS: IV FLUID CONTINUATION 1,000 ML IV ONE (12:15)
[2024-01-26 12:21] VITALS: RESP 16
[2024-01-26] MEDS: MELOXICAM 7.5 MG TAB PO PRN (12:36)
[2024-01-26] MEDS: ACETAMINOPHEN TAB 500 MG TAB PO PRN (12:37)
[2024-01-26] MEDS: ONDANSETRON 4 MG/2 ML VIAL IVP ONE (12:37)
[2024-01-26] MEDS: DEXAMETHASONE SOD PHOSPHATE 4 MG/ML 1 ML VIAL IV ONE (12:37)
[2024-01-26] MEDS: HEPARIN SODIUM,PORCINE 5,000 UNIT/ML 1 ML VIAL SQ PRN (12:51)
[2024-01-26] MEDS ORDERED: PROPOFOL 10 MG/ML 20 ML VIAL IV ONE (13:53)
[2024-01-26] MEDS ORDERED: PHENYLEPHRINE 10 MG/ML VIAL ONE (13:53)
[2024-01-26] MEDS ORDERED: GLYCOPYRROLATE 0.2 MG/ML 2 ML VIAL ONE (13:53)
[2024-01-26] MEDS ORDERED: NEOSTIGMINE 1 MG/ML 10 ML VIAL ONE (13:53)
[2024-01-26] MEDS ORDERED: SUCCINYLCHOLINE CHLORIDE 200 MG/10 ML VIAL IV ONE (13:53)
[2024-01-26] MEDS ORDERED: ROCURONIUM 10 MG/ML (5 ML VIAL) IV ONE (13:53)
[2024-01-26] MEDS ORDERED: MIDAZOLAM 2 MG/2 ML VIAL ONE (13:53)
[2024-01-26] MEDS ORDERED: fentaNYL (PF) 50 MCG/ML 2 ML AMP ONE (13:53)
[2024-01-26] MEDS ORDERED: LIDOCAINE 1% INJ 10MG/ML (20 ML MDV) ONE (13:53)
[2024-01-26] MEDS: LIDOCAINE 1%-EPI 1:100,000 20 ML VIAL SQ ONE (14:19)
[2024-01-26 16:27] VITALS: TEMP 97.4
--- NOTE | 2024-01-26 16:45 | P.OP ---
Date of Procedure: 01/26/24 Description of Procedure: SURGEON: ROGER KENNEY MD PREOPERATIVE DIAGNOSES: 1. Initial epigastric incisional hernia with incarceration 2. Obesity due to excess calories, BMI 32.0 3. Status post gastric bypass, open technique 4. History of recurrent urinary tract infection 5. Status post massive weight loss POSTOPERATIVE DIAGNOSES: 1. Initial incisional hernia with incarceration of transverse colon, partial bowel obstruction, 12 x 10 cm 2. Obesity due to excess calories, BMI 32.0 3. Status post gastric bypass, open technique 4. History of recurrent urinary tract infection 5. Status post massive weight loss 6. Severe intra-abdominal adhesions OPERATION: 1. Robotic-assisted da Mallika Xi laparoscopic repair of initial incarcerated incisional ventral hernia with mesh, ventralight ST mesh 11.4 cm 2. Robotic-assisted da Mallika Xi laparoscopic lysis of adhesions over 1 hour Anesthesia: GETA, regional, local Estimated Blood Loss (ml): 5 Pathology: None COMPLICATIONS: None. Operative Findings: 1. Upper midline epigastric incisional ventral hernia 12 x 10 cm subcutaneous tissue incorporating transverse colon 2. Fascial defect 5 x 6 cm 3. Fascia repaired using #1 V-lock suture, double fascial imbrication 4. Severe midline epigastric adhesions incorporating transverse colon requiring over 1 hour extensive lysis of adhesions using blunt dissection and vessel sealer INDICATIONS: The patient is a 68-year-old female who presents after prior open gastric bypass surgery and residual large swelling of the right upper quadrant. Diagnostic studies demonstrated incarcerated of bowel. Surgical intervention with laparoscopic versus robotic and open techniques were reviewed. Placement of mesh was also reviewed. Benefits and risks were thoroughly described. Informed consent was obtained. DESCRIPTION OF PROCEDURE: The patient was brought into the operating room and laid in supine position. After general induction, the abdomen had been prepped and draped in standard sterile fashion. Ioban draping was also placed. Prior to incision, a timeout protocol was confirmed with surgical team regarding the patient's name including procedures to be performed. The robot was primed prior to the procedure. A field block using local anesthetic was placed along hernia site including the proposed port sites. Initial incision was made with an #11 blade along the left upper quadrant. A 0 degree 5 mm laparoscopic trocar entry was performed and insufflated. Three 8 mm ports were placed along the left lateral abdominal wall under direct localization after exchanging the 5-mm for an 8 mm port. Placements of the ports were 15 cm from the target anatomy and 10 cm apart. An accessory 12 mm port was placed at the left upper quadrant for exchange of mesh including sutures. The da Mallika Xi robot was previously primed, prepped and draped then docked from the right side of the patient onto the left side of the patient. I then sat at the robot Da Mallika Xi console where working arms of the robot including Bovie cautery connected to robotic scissors, needle otr refrigerated cdl truck driver, and graspers placed by the therapy administrative assistant. Severe midline including epigastric adhesions of omentum to abdominal wall was found requiring extensive lysis of adhesions using blunt dissection and vessel sealer for over 1 hour. The transverse colon was incarcerated including inherent along the fascia with careful dissection performed without injury to the mid transverse colon. With the assistance of the registered nurse first assistant, pressure was applied over the subcutaneous defect of the right upper quadrant along to reduce the incarcerated bowel. The fascial edges were cleaned using vessel sealer. No colotomy occurred during the procedure. The size of the defect was 5 x 6 cm at the epigastrium and the right upper quadrant. The falciform ligament including liver adherent to the abdominal wall and undisturbed. The hernia defect was measured and oversewn using #1 nonabsorbable V-lock suture for each defect separately with fascial imbrication x 2. Next, ventralight ST mesh 11.4 cm was placed with the rough side towards the abdominal wall. 2-0 VLOC 12 inch absorbable sutures were used to fixate the mesh. A final endoscopic imaging was obtained. All instruments and pneumoperitoneum were evacuated from the abdominal cavity. The da Mallika Xi robot was undocked from the patient. I re-scrubbed into the case for closure of incisions. The fascia of the 12-mm port was probed and less than 8-mm in size. The incisions were reapproximated using 4-0 Monocryl in an interrupted subcuticular fashion. Liquid glue was applied to the skin after cleansing the skin with normal saline and dilute hydrogen peroxide. An abdominal binder was placed. At the end of the procedure, needle, sponge, and instrument count had been verified correct by certified pest control technician. The patient was taken to the postanesthesia care unit in stable condition. Plan - Discharge Summary Discharge Rx Participant: No New Discharge Prescriptions: New Simethicone [Gas-X] 125 mg PO AC-TID PRN #20 capsule PRN Reason: Pain Acetaminophen Tab [Tylenol Tab] 1,000 mg PO Q6HR PRN #30 tablet PRN Reason: Pain Continue Vitamin K2 [Vitamin K-2] 100 mcg PO DAILY Multivit-Min/Iron/Folic/Lutein [Centrum Silver Women Tablet] 2 each PO DAILY Cyanocobalamin (Vitamin B-12) [Vitamin B-12] 1,000 mcg PO DAILY Calcium Carbonate/Vitamin D3 [Calcium 600 mg-D3 10 Mcg (400 Iu)] 2 each PO DAILY Solifenacin Succinate [Vesicare] 5 mg PO DAILY Non Formulary Drug 1 tab PO BID Discontinued Turmeric Root Extract [Turmeric Curcumin] 500 mg PO DAILY Zma-Supplement 2 tab PO DAILY Discharge Medication List Calcium Carbonate/Vitamin D3 [Calcium 600 mg-D3 10 Mcg (400 Iu)] 2 each PO DAILY 07/23/23 [History] Cyanocobalamin (Vitamin B-12) [Vitamin B-12] 1,000 mcg PO DAILY 07/23/23 [History] Multivit-Min/Iron/Folic/Lutein [Centrum Silver Women Tablet] 2 each PO DAILY 07/23/23 [History] Vitamin K2 [Vitamin K-2] 100 mcg PO DAILY 07/23/23 [History] Non Formulary Drug 1 tab PO BID 12/10/23 [History] Solifenacin Succinate [Vesicare] 5 mg PO DAILY 12/10/23 [History] Acetaminophen Tab [Tylenol Tab] 1,000 mg PO Q6HR PRN #30 tablet 01/26/24 [Rx] Simethicone [Gas-X] 125 mg PO AC-TID PRN #20 capsule 01/26/24 [Rx] Follow up Appointment(s)/Ref[facility] [place] [facility] - 02/04/24 3:00 pm Patient Instructions/Handouts: Laparoscopic Herniorrhaphy (PRE), Ventral Hernia Repair (GEN), Abdominal Binder (GEN), Deep Vein Thrombosis Prevention (DC) Activity/Diet/Wound Care/Special Instructions: NO LONG DRIVES OR AIRPLANE RIDES OVER 60 MINUTES FOR THE NEXT 2 WEEKS, 02/09/24, DUE TO HIGH RISK OF PULMONARY EMBOLISM/DVTs Using antibacterial soap. No lifting over 4 pounds 4 weeks, Dec 11th May shower. No bathtub soaks for 2 weeks, 02/09/24 Wear abdominal binder daily for comfort except for showering. Use ice along incisions for today to prevent swelling. Take tylenol, simethicone scheduled for 3 days for best pain relief Discharge Disposition: HOME SELF-CARE
[2024-01-26 17:09] VITALS: BP 127/58; PULSE 55
== END 2024-01-26 17:36 | disposition home or self-care (01) ==
LOC: OR 11:40
PROVIDERS: ATTEND Surgery Plastic and Reconstructive Surgery
DX: K43.0 Incisional hernia with obstruction, without gangrene (principal); K66.0 Peritoneal adhesions (postprocedural) (postinfection); E66.9 Obesity, unspecified; M79.3 Panniculitis, unspecified; Z68.32 Body mass index [BMI] 32.0-32.9, adult; Z98.84 Bariatric surgery status; Z87.440 Personal history of urinary (tract) infections; Z79.899 Other long term (current) drug therapy; Z91.09 Other allergy status, other than to drugs and biological substances; Z90.710 Acquired absence of both cervix and uterus; Z90.49 Acquired absence of other specified parts of digestive tract; Z98.890 Other specified postprocedural states; Z88.2 Allergy status to sulfonamides
CPT/HCPCS: 49329; 49596; S2900

== ENCOUNTER → 2024-01-30 | Outpatient (CLI) | payer MEDICARE ==
[2024-01-30 09:49] VITALS: BP 131/83; PULSE 75; RESP 16; TEMP 98.2; BMI 31.9
--- NOTE | 2024-01-30 11:06 | P.PN ---
Progress Note - Text Progress Note Date: 01/30/24 Patient contacted via telephone. She reports having cataract surgery January 15 and February 03. Otherwise per discussion with nursing, patient doing extremely well. Risk for DVTs were described in detail including ambulation and hydration. Patient will follow-up especially after her 4-week recovery from surgery. All questions were addressed.
== END ==
LOC: BARWHC3 08:50
PROVIDERS: ATTEND Surgery Plastic and Reconstructive Surgery
DX: E66.01 Morbid (severe) obesity due to excess calories (principal); Z68.32 Body mass index [BMI] 32.0-32.9, adult; Z88.0 Allergy status to penicillin; Z91.048 Other nonmedicinal substance allergy status; Z87.891 Personal history of nicotine dependence
CPT/HCPCS: 99211